=== PATIENT | female | born 1970 | race African-American/Black ===

== ENCOUNTER 2021-02-01 03:03 | Emergency (ER) | payer MEDICAID ==
[~2021-02-01] VITALS: Ht 165.1 cm; Wt 55.0 kg
[2021-02-01] MEDS ORDERED: ACETAMINOPHEN WITH CODEINE 300/30MG TABLET PO STA (03:38)
[2021-02-01 04:18] VITALS: BP 165/86
== END 2021-02-01 06:14 | disposition home or self-care (01) ==
LOC: ER 03:03
DX: S80.212A Abrasion, left knee, initial encounter (principal); S80.211A Abrasion, right knee, initial encounter; M54.5 Low back pain; W10.8XXA Fall (on) (from) other stairs and steps, initial encounter; Y93.89 Activity, other specified; Y92.018 Other place in single-family (private) house as the place of occurrence of the external cause
CPT/HCPCS: 73562; 99283

== ENCOUNTER 2022-01-09 12:58 | Emergency (ER) | payer MEDICAID ==
[~2022-01-09] VITALS: Ht 165.1 cm; Wt 55.0 kg
[2022-01-09] MEDS ORDERED: IBUPROFEN 600MG TABLET PO STA (14:34)
[2022-01-09 14:56] VITALS: BP 150/102
[2022-01-09] MEDS ORDERED: ACET-2708 MT (15:25)
== END 2022-01-09 15:34 | disposition home or self-care (01) ==
LOC: ER 12:58
DX: S63.602A Unspecified sprain of left thumb, initial encounter (principal); Y04.0XXA Assault by unarmed brawl or fight, initial encounter; Y93.79 Activity, other specified sports and athletics; Y92.89 Other specified places as the place of occurrence of the external cause; Y99.8 Other external cause status
CPT/HCPCS: 29130; 73140; 99283

== ENCOUNTER 2022-02-13 02:52 | Emergency (ER) | payer MEDICAID ==
[~2022-02-13] VITALS: Ht 165.1 cm; Wt 57.3 kg
[~2022-02-13 02:52] MED LIST: ACET-2708 MT
[2022-02-13] MEDS ORDERED: ACETAMINOPHEN 325MG TABLET PO ONE (04:45)
[2022-02-13] MEDS ORDERED: IBUP-2028 PO ×3 (08:12→11:50)
[2022-02-13] MEDS ORDERED: OXYC-100 PO ×3 (08:12→11:50)
[2022-02-13] MEDS ORDERED: IBUPROFEN 400MG TABLET PO ONE (08:15)
[2022-02-13 08:39] VITALS: BP 152/99
[2022-02-13] MEDS ORDERED: ONDA4TAB5 PO (11:50)
== END 2022-02-13 08:48 | disposition home or self-care (01) ==
LOC: ER 03:27
DX: S02.31XA Fracture of orbital floor, right side, initial encounter for closed fracture (principal); S02.40CA Maxillary fracture, right side, initial encounter for closed fracture; M79.641 Pain in right hand; R03.0 Elevated blood-pressure reading, without diagnosis of hypertension; Y04.2XXA Assault by strike against or bumped into by another person, initial encounter; Y93.89 Activity, other specified; Y92.098 Other place in other non-institutional residence as the place of occurrence of the external cause
CPT/HCPCS: 70486; 73120; 99284

== ENCOUNTER 2022-02-24 00:37 | Emergency (ER) | payer MEDICAID ==
[~2022-02-24] VITALS: Ht 165.1 cm; Wt 59.0 kg
[~2022-02-24 00:37] MED LIST changes: +IBUP-2028 PO; +ONDA4TAB5 PO; +OXYC-100 PO
[2022-02-24 00:46] VITALS: BP 144/96
[2022-04-18] MEDS ORDERED: SULF1TAB48 PO ×2 (07:54→08:47)
[2022-04-18] MEDS ORDERED: CEPH500T PO ×2 (07:54→08:47)
[2022-04-18] MEDS ORDERED: DIPH25CA83 PO (07:54)
[2022-04-18] MEDS ORDERED: TOPUD PO (08:47)
== END 2022-02-24 02:54 | disposition left against medical advice (07) ==
LOC: ER 00:37
DX: Z53.21 Procedure and treatment not carried out due to patient leaving prior to being seen by health care provider (principal)

== ENCOUNTER 2022-02-27 00:16 | Emergency (ER) | payer MEDICAID ==
[~2022-02-27] VITALS: Ht 165.1 cm; Wt 59.6 kg
[2022-02-27 00:40] VITALS: BP 152/101
== END 2022-02-27 02:16 | disposition left against medical advice (07) ==
LOC: ER 00:16
DX: Z53.21 Procedure and treatment not carried out due to patient leaving prior to being seen by health care provider (principal)

== ENCOUNTER 2022-06-12 02:26 | Emergency (ER) | payer MEDICAID ==
[~2022-06-12] VITALS: Ht 165.1 cm; Wt 65.5 kg
[~2022-06-12 02:26] MED LIST changes: +CEPH500T PO; +SULF1TAB48 PO; +TOPUD PO
[2022-06-12 02:32] VITALS: BP 163/98
[2022-06-12] MEDS ORDERED: LOPERAMIDE HCL 2MG CAPSULE PO ONE (04:15)
[2022-06-12] MEDS ORDERED: IMOD MT (04:24)
== END 2022-06-12 06:30 | disposition home or self-care (01) ==
LOC: ER 02:26
DX: L72.3 Sebaceous cyst (principal); Z79.899 Other long term (current) drug therapy; Z98.890 Other specified postprocedural states
CPT/HCPCS: 74018; 99283

== ENCOUNTER 2023-06-27 15:31 | Emergency (ER) | payer MEDICAID, OTHER ==
[~2023-06-27] VITALS: Ht 165.1 cm; Wt 54.0 kg
[~2023-06-27 15:31] MED LIST changes: +IMOD MT
[2023-06-27 15:38] VITALS: BP 119/77; PULSE 78; RESP 16; TEMP 98.7; O2SAT 100
[2023-06-27] MEDS ORDERED: BACITRACIN ZINC OINT UDPKT TOP ONE ×2 (15:45→19:15)
[2023-06-27] MEDS ORDERED: LIDOCAINE HCL/PF 1% 10 MG/ML 5ML VIAL INFIL ONE (15:45)
[2023-06-27] MEDS ORDERED: IBUPROFEN 600MG TABLET PO ONE (15:45)
[2023-06-27] MEDS ORDERED: TETANUS, DIPHTHERIA, PERTUSSIS VAC/PF 0.5ML (>10YR OLD) IM ONE (16:00)
[2023-06-27] MEDS ORDERED: CEPHALEXIN 250MG CAPSULE PO NR (18:00)
[2023-06-27] MEDS ORDERED: BACITRACIN ZINC OINT UDPKT TOP NR (18:00)
[2023-06-27] MEDS ORDERED: BO1 TP (18:10)
[2023-06-27] MEDS ORDERED: NAPR-681 PO (18:10)
[2023-06-27] MEDS ORDERED: CEPH500C2 MT (18:10)
[2023-06-27] MEDS ORDERED: T3 PO (18:10)
== END 2023-06-27 19:38 | disposition home or self-care (01) ==
LOC: ER 15:31
DX: S51.811A Laceration without foreign body of right forearm, initial encounter (principal); D64.9 Anemia, unspecified; Z98.890 Other specified postprocedural states; Z79.899 Other long term (current) drug therapy; X58.XXXA Exposure to other specified factors, initial encounter; Y93.89 Activity, other specified; Y92.89 Other specified places as the place of occurrence of the external cause; Y99.8 Other external cause status
CPT/HCPCS: 90715; 12001; 90471; 99283; J3490; Z7610 ×2

== ENCOUNTER 2023-09-13 04:57 | Emergency (ER) | payer MEDICAID, OTHER ==
[~2023-09-13] VITALS: Ht 165.1 cm; Wt 55.0 kg
[~2023-09-13 04:57] MED LIST changes: +BO1 TP; +CEPH500C2 MT; +NAPR-681 PO; +T3 PO
[2023-09-13 05:18] VITALS: TEMP 98.3; O2SAT 98
[2023-09-13] MEDS ORDERED: LIDO700A15 TP (10:37)
[2023-09-13] MEDS ORDERED: CYCL5TAB MT (10:37)
[2023-09-13] MEDS ORDERED: NAPR-1176 MT (10:37)
[2023-09-13 10:45] VITALS: BP 142/94; PULSE 86; RESP 16
[2023-09-13] MEDS ORDERED: KETOROLAC 30MG/ML VIAL IM ONE (10:45)
== END 2023-09-13 13:58 | disposition home or self-care (01) ==
LOC: ER 04:57
DX: M54.50 Low back pain, unspecified (principal); Z79.899 Other long term (current) drug therapy; Z98.890 Other specified postprocedural states
CPT/HCPCS: 72070; 72100; 96372; 99284; J1885; Z7610

== ENCOUNTER 2023-12-21 17:28 | Emergency (ER) | payer MEDICAID, OTHER ==
[~2023-12-21] VITALS: Ht 175.3 cm; Wt 50.0 kg
[~2023-12-21 17:28] MED LIST changes: +CYCL5TAB MT; +LIDO700A15 TP; +NAPR-1176 MT
[2023-12-21 17:40] VITALS: O2SAT 100
[2023-12-21] MEDS ORDERED: ACETAMINOPHEN WITH CODEINE 300/30MG TABLET PO ONE (21:45)
[2023-12-21] MEDS: KETOROLAC 60MG/2ML VIAL IM STA (22:19)
[2023-12-21 22:20] VITALS: RESP 17
[2023-12-21] MEDS: ACETAMINOPHEN WITH CODEINE 300/30MG TABLET PO NR (22:20)
[2023-12-21] MEDS ORDERED: CYCL5TAB MT (22:46)
[2023-12-21 23:04] VITALS: BP 178/103; PULSE 78; TEMP 97.9
== END 2023-12-21 23:05 | disposition home or self-care (01) ==
LOC: ER 17:28
DX: S20.219A Contusion of unspecified front wall of thorax, initial encounter (principal); M54.9 Dorsalgia, unspecified; D64.9 Anemia, unspecified; Z98.890 Other specified postprocedural states; Z79.899 Other long term (current) drug therapy; V49.59XA Passenger injured in collision with other motor vehicles in traffic accident, initial encounter; Y93.89 Activity, other specified; Y92.89 Other specified places as the place of occurrence of the external cause; Y99.8 Other external cause status
CPT/HCPCS: 99284; 71046; 72100; 96372; J1885

== ENCOUNTER 2024-01-18 04:24 | Emergency (ER) | payer MEDICAID ==
[2024-01-18 04:26] VITALS: PULSE 92
== END 2024-01-18 07:24 | disposition left against medical advice (07) ==
LOC: ER 04:32
DX: M54.9 Dorsalgia, unspecified (principal); Z53.21 Procedure and treatment not carried out due to patient leaving prior to being seen by health care provider
CPT/HCPCS: 99281

== ENCOUNTER 2024-02-15 04:51 | Emergency (ER) | payer MEDICAID ==
[~2024-02-15] VITALS: Ht 165.1 cm; Wt 54.5 kg
[2024-02-15 04:59] VITALS: BP 155/94; PULSE 85; TEMP 98.3; O2SAT 98
[2024-02-15] MEDS ORDERED: LIDOCAINE HCL/PF 1% 10 MG/ML 5ML VIAL INFIL ONE (08:00)
[2024-02-15 08:26] LABS: CLARITY URINE CLOUDY (CLEAR); COLOR URINE YELLOW (YELLOW); GLUCOSE URINE NEGATIVE (NEGATIVE); KETONES URINE NEGATIVE (NEGATIVE); LEUKOCYTE ESTERASE URINE 2+ (NEGATIVE); NITRITE URINE NEGATIVE (NEGATIVE); OCCULT BLOOD URINE TRACE (NEGATIVE); PH URINE 5.5 (4.5-8.0); PROTEIN URINE NEGATIVE (NEGATIVE); SPECIFIC GRAVITY URINE 1.012 (1.005-1.030); UROBILINOGEN URINE 0.2 E.U./dL (0.2-1.0)
[2024-02-15 08:38] LABS: BASOPHILS % 0.3 % (0.0-2.0); EOSINOPHILS % 2.4 % (0.0-5.0); HEMATOCRIT. 40.7 % (36.0-48.0); HEMOGLOBIN. 13.9 g/dL (12.0-16.0); LYMPHOCYTES % 47.9 % (20.0-50.0); MEAN CORPUSCULAR HEMOGLOBIN 29.6 pg (28.0-32.0); MEAN CORPUSCULAR HGB CONC 34.2 g/dL (31.0-37.0); MEAN CORPUSCULAR VOLUME 86.5 fL (81.0-99.0); MEAN PLATELET VOLUME 7.8 fl (7.4-10.4); MONOCYTES % 5.5 % (2.0-8.0); NEUTROPHILS % 43.9 % (40.0-76.0); PLATELET 255 x1000/uL (130-400); RED BLOOD CELL COUNT 4.71 mill/uL (4.2-5.4); RED CELL DISTRIBUTION WIDTH 14.4 % (11.6-14.6); WHITE BLOOD COUNT 4.4 x1000/uL (4.5-11.0)
[2024-02-15 08:40] LABS: CARBON DIOXIDE 24 mEq/L (21-32); CHLORIDE 109 mEq/L (98-107); POTASSIUM 3.7 mEq/L (3.5-5.1); SODIUM 140 mEq/L (136-145)
[2024-02-15 08:45] LABS: GLUCOSE 115 mg/dL (70-105)
[2024-02-15 08:46] LABS: UREA NITROGEN BLOOD 17 mg/dL (9-23)
[2024-02-15 08:47] LABS: ALANINE AMINOTRANSFERASE 19 IU/L (10-49); ASPARTATE AMINOTRANSFERASE 24 IU/L (<34)
[2024-02-15 08:48] LABS: BACTERIA URINE 2+; RBC URINE 0-2 /hpf (0-2); SQUAMOUS EPITHELIAL CELL URINE 2+ /lpf (RARE/1+); YEAST URINE NONE SEEN
[2024-02-15 08:48] LABS: BILIRUBIN TOTAL 0.3 mg/dL (0.1-1.0)
[2024-02-15] MEDS ORDERED: NAPHADR EACHEYE (09:12)
[2024-02-15 09:20] VITALS: RESP 16
== END 2024-02-15 09:20 | disposition home or self-care (01) ==
LOC: ER 05:01
DX: B30.9 Viral conjunctivitis, unspecified (principal); Z77.120 Contact with and (suspected) exposure to mold (toxic); Z79.899 Other long term (current) drug therapy
CPT/HCPCS: 36415; 71045; 80053; 81003; 85025; 99284

== ENCOUNTER 2024-07-26 02:38 | Emergency (ER) | payer OTHER, MEDICAID ==
[~2024-07-26] VITALS: Ht 165.1 cm; Wt 55.0 kg
[~2024-07-26 02:38] MED LIST changes: -CYCL5TAB MT; +CYCL5TAB3 MT; +NAPHADR EACHEYE
[2024-07-26 02:52] VITALS: TEMP 98.2; O2SAT 100
[2024-07-26 03:01] VITALS: BP 160/97; PULSE 84; RESP 20; O2SAT 98
== END 2024-07-26 03:07 | disposition home or self-care (01) ==
LOC: ER 02:38
DX: S50.02XA Contusion of left elbow, initial encounter (principal); D64.9 Anemia, unspecified; Z98.890 Other specified postprocedural states; Z79.899 Other long term (current) drug therapy; W22.8XXA Striking against or struck by other objects, initial encounter; X58.XXXA Exposure to other specified factors, initial encounter; Y93.89 Activity, other specified; Y92.89 Other specified places as the place of occurrence of the external cause; Y99.8 Other external cause status
CPT/HCPCS: 99282

== ENCOUNTER 2024-08-04 01:32 | Emergency (ER) | payer MEDICAID, OTHER ==
[~2024-08-04] VITALS: Ht 167.6 cm; Wt 54.0 kg
[~2024-08-04 01:32] MED LIST changes: +CYCL5TAB MT; -CYCL5TAB3 MT
[2024-08-04 01:34] VITALS: O2SAT 98
[2024-08-04 01:36] VITALS: BP 169/117; PULSE 90; RESP 18; TEMP 98; O2SAT 100
== END 2024-08-04 03:27 | disposition left against medical advice (07) ==
LOC: ER 01:32
DX: H57.10 Ocular pain, unspecified eye (principal); Z53.21 Procedure and treatment not carried out due to patient leaving prior to being seen by health care provider

== ENCOUNTER 2024-10-18 22:05 | Emergency (ER) | payer OTHER ==
[~2024-10-18] VITALS: Ht 165.1 cm; Wt 55.0 kg
[~2024-10-18 22:05] MED LIST changes: -CYCL5TAB MT; +CYCL5TAB3 MT
[2024-10-18 22:10] VITALS: BP 159/92; PULSE 99; RESP 18; TEMP 98.3; O2SAT 99
== END 2024-10-19 00:23 | disposition left against medical advice (07) ==
LOC: ER 22:05
DX: M54.2 Cervicalgia (principal); Z53.21 Procedure and treatment not carried out due to patient leaving prior to being seen by health care provider

== ENCOUNTER 2024-11-11 23:22 | Emergency (ER) | payer OTHER ==
[~2024-11-11] VITALS: Ht 170.2 cm; Wt 56.0 kg
[2024-11-12 00:13] VITALS: BP 180/123; TEMP 36.8; O2SAT 99
[2024-11-12 00:17] VITALS: PULSE 99; RESP 18; O2SAT 99
== END 2024-11-12 03:31 | disposition home or self-care (01) ==
LOC: ER 23:22
DX: Z77.098 Contact with and (suspected) exposure to other hazardous, chiefly nonmedicinal, chemicals (principal); I10 Essential (primary) hypertension; Z79.1 Long term (current) use of non-steroidal anti-inflammatories (NSAID); Z79.899 Other long term (current) drug therapy
CPT/HCPCS: 71045; 99283

== ENCOUNTER 2025-10-02 19:51 | Emergency (ER) | payer MEDICAID, OTHER ==
[~2025-10-02] VITALS: Ht 165.1 cm; Wt 57.2 kg
[~2025-10-02 19:51] MED LIST changes: +LIDO-53 TP; -LIDO700A15 TP
[2025-10-02 19:53] VITALS: O2SAT 100
[2025-10-02 19:55] VITALS: BP 147/84; PULSE 95; RESP 18; TEMP 36.7; O2SAT 98
[2025-10-22] MEDS ORDERED: LOSA50TA41 MT (04:49)
[2025-10-22] MEDS ORDERED: IBUP-1455 MT (04:49)
== END 2025-10-02 22:46 | disposition home or self-care (01) ==
LOC: ER 19:51
DX: M54.9 Dorsalgia, unspecified (principal)
CPT/HCPCS: 99281